=== PATIENT | female | born 1950 | race Caucasian/White ===

== ENCOUNTER 2023-04-06 14:16 | Emergency (ER) | payer MEDICARE ==
[~2023-04-06] VITALS: Ht 167.6 cm; Wt 62.3 kg
[2023-04-06] MEDS ORDERED: ONDANSETRON HCL INJ 2MG/ML 2ML 2 MG/ML VIAL IV STA (14:52)
[2023-04-06] MEDS ORDERED: ASPIRIN 81 MG CHEW TAB ONE (14:53)
[2023-04-06] MEDS ORDERED: PRILOSEC OTC20 MG (14:56)
[2023-04-06] MEDS ORDERED: APRISO0.375 GM PO (14:56)
[2023-04-06] MEDS ORDERED: Morphine 4mg INJECTION 4 MG/ML INJ IV ONE (15:00)
[2023-04-06] MEDS ORDERED: ASPIRIN 325 MG TAB PO ONE (15:00)
[2023-04-06] MEDS ORDERED: FAMOTIDINE 20 MG/2 ML VIAL IV ONE (15:15)
[2023-04-06] MEDS ORDERED: SODIUM CHLORIDE 0.9% 1000ML 1,000 ML ONE (15:15)
[2023-04-06] MEDS ORDERED: FAMOTIDINE 20 MG/2 ML VIAL IV STA (15:16)
[2023-04-06] MEDS ORDERED: SODIUM CHLORIDE 0.9% 1000ML 1,000 ML IV SCH (15:30)
[2023-04-06] MEDS ORDERED: SODIUM CHLORIDE 0.9% 100 ML ONE (15:38)
[2023-04-06] MEDS ORDERED: IOPAMIDOL 370 MG/ML 100 ML INFUS..BTL INJ ONE (15:39)
[2023-04-06] MEDS ORDERED: LORAZEPAM INJ 2 MG/ML VIAL ONE (16:24)
[2023-04-06] MEDS ORDERED: LORAZEPAM INJ 2 MG/ML VIAL IV ONE (17:15)
[2023-04-06] MEDS ORDERED: KETOROLAC TROMETHAMINE 30 MG/ML VIAL IV STA (19:20)
[2023-04-06] MEDS ORDERED: CEFTRIAXONE 1 GM VIAL ONE (19:22)
[2023-04-06 19:33] LABS: CREATINE KINASE 135 IU/L (29-168)
[2023-04-06] MEDS ORDERED: CEFDINIR300 MG PO (20:14)
[2023-04-06] MEDS ORDERED: ONDANSETRON ODT4 MG PO (20:15)
[2023-04-06] MEDS ORDERED: NAPROSYN500 MG PO (20:16)
[2023-04-06 20:25] VITALS: BP 148/72; PULSE 88; RESP 16; O2SAT 94
== END 2023-04-06 20:28 | disposition home or self-care (01) ==
LOC: FSED 14:22
DX: R05.9 Cough, unspecified (principal); J18.9 Pneumonia, unspecified organism; R07.89 Other chest pain; M94.0 Chondrocostal junction syndrome [Tietze]; K21.9 Gastro-esophageal reflux disease without esophagitis; R94.31 Abnormal electrocardiogram [ECG] [EKG]; F17.210 Nicotine dependence, cigarettes, uncomplicated
CPT/HCPCS: 36415; 71275; 74174; 80053; 82550; 82553; 84484; 85025; 85379; 93005; 96374; 96375; 99284; J0696; J1885; J2060; J2270; J2405; J7030; J7050; Q9967